=== PATIENT | male | born 1930 | race Caucasian/White ===

== ENCOUNTER 2017-07-09 10:52 | Inpatient (IN) | payer OTHER, MEDICARE, BC ==
[2017-07-09] VITALS (15 sets, daily range): BP systolic 108–139; BP diastolic 51–71
[~2017-07-09] VITALS: Ht 168.9 cm; Wt 67.5 kg
[2017-07-09] MEDS ORDERED: normal saline 1000ML IV soln IVB ONE (11:50)
[2017-07-09] MEDS ORDERED: LOSA25TA96 PO (11:59)
[2017-07-09] MEDS ORDERED: ALPR-624 PO (11:59)
[2017-07-09] MEDS ORDERED: HCTZ25T (11:59)
[2017-07-09] MEDS ORDERED: SIMV20TA5 PO (11:59)
[2017-07-09 12:08] LABS: BASOPHILS % (AUTO) 0.3 % (0-1); EOSINOPHILS # (AUTO) 0.2 X10'3 (0-0.9); EOSINOPHILS % (AUTO) 1.9 % (0-6); HEMATOCRIT 22.2 % (42.0-52.0); HEMOGLOBIN 7.7 g/dl (14.0-17.9); LYMPHOCYTES # (AUTO) 1.2 X10'3 (1.1-4.8); LYMPHOCYTES % (AUTO) 11.8 % (21-51); MEAN CORPUSCULAR HEMOGLOBIN 31.8 PG (27.0-31.0); MEAN CORPUSCULAR HGB CONC 34.9 % (33.0-36.5); MEAN PLATELET VOLUME 7.4 FL (7.4-10.4); MONOCYTES # (AUTO) 0.5 X10'3 (0-0.9); MONOCYTES % (AUTO) 4.6 % (2-12); NEUTROPHILS # (AUTO) 8.4 X10'3 (1.8-7.7); NEUTROPHILS % (AUTO) 81.4 % (42-75); PLATELET COUNT 266 X10'3 (140-440); RED BLOOD COUNT 2.44 X10'6 (4.70-6.10); RED CELL DISTRIBUTION WIDTH 12.9 % (11.5-14.5); WHITE BLOOD COUNT 10.4 X10'3 (4.5-11.0)
[2017-07-09 12:18] LABS: INR 1.1 INR; PARTIAL THROMBOPLASTIN TIME 21 SECONDS (22-32); PROTHROMBIN TIME 11.2 SECONDS (9.0-12.0)
[2017-07-09 12:22] LABS: ALANINE AMINOTRANSFERASE 15 U/L (12-78); ALBUMIN 2.3 G/DL (3.4-5.0); ALKALINE PHOSPHATASE 33 IU/L (46-116); ANION GAP 7 (8-16); ASPARTATE AMINO TRANSFERASE 12 U/L (10-37); BILIRUBIN,TOTAL 0.3 MG/DL (0.1-1.0); BLOOD UREA NITROGEN 21 MG/DL (7-18); BUN/CREATININE RATIO 22.8 (5.4-32.0); CALCIUM 7.7 MG/DL (8.5-10.1); CHLORIDE 107 MMOL/L (99-107); CREATININE 0.92 MG/DL (0.60-1.10); GLUCOSE 168 MG/DL (70-104); POTASSIUM 4.3 MMOL/L (3.5-5.1); SODIUM 141 MMOL/L (135-145); TOTAL CARBON DIOXIDE 27.3 MMOL/L (24-32); TOTAL PROTEIN 4.6 G/DL (6.4-8.2); eGFR 78 ML/MIN
[2017-07-09] MEDS ORDERED: potassium Cl 20 mEq SR tablet PO PRN (14:50)
[2017-07-09] MEDS ORDERED: magnesium 2GM in 50ml NS 50 ML IV PRN (14:50)
[2017-07-09] MEDS ORDERED: potassium Cl 40MEQ/NS 500ml 500 ML IV PRN ×2 (14:50)
[2017-07-09] MEDS ORDERED: magnesium Cl slow-release 64mg tablet PO PRN (14:50)
[2017-07-09] MEDS ORDERED: mag hydrox/Alum hydrox/simeth 30ml oral suspension PO PRN (14:50)
[2017-07-09] MEDS ORDERED: acetaminophen 325mg tablet PO PRN (14:50)
[2017-07-09] MEDS ORDERED: ondansetron/PF 4mg/2ml inj IV PRN (14:50)
[2017-07-09] MEDS ORDERED: magnesium 4gm in 100ml NS 100 ML IV PRN (14:50)
[2017-07-09] MEDS ORDERED: morphine 2 MG/ML inj. syringe IV PRN ×2 (14:50)
[2017-07-09] MEDS ORDERED: magnesium hydroxide 30ml (MOM) UD suspension PO PRN (14:50)
[2017-07-09] MEDS ORDERED: heparin sodium, porcine/PF 100unit/ml 5ML syringe ONE (15:00)
[2017-07-09] MEDS ORDERED: LIDOcaine 1%/PF (10mg/ml) 5ml vial SQ ONE (17:00)
[2017-07-09] MEDS ORDERED: midazolam 2 mg/2 ml injection IV PRN (17:00)
[2017-07-09] MEDS ORDERED: fentaNYL/PF 50MCG/1 ML 2ML syringe IV PRN (17:00)
[2017-07-09] MEDS ORDERED: LIDOcaine 1%/PF (10mg/ml) 5ml vial ONE (17:00)
[2017-07-09] MEDS ORDERED: heparin 1,000 UNITS/NS 500ml 500 ML ONE (17:01)
[2017-07-09] MEDS ORDERED: fentaNYL/PF 50MCG/1 ML 2ML syringe ONE ×2 (17:01→18:08)
[2017-07-09] MEDS ORDERED: midazolam 2 mg/2 ml injection ONE ×2 (17:01→18:08)
[2017-07-09] MEDS ORDERED: iohexol 300mg/ml 100ml inj. ONE (17:02)
[2017-07-09] MEDS ORDERED: iohexol 300 MG/1 ML 50ml polymer ONE (17:45)
[2017-07-09] MEDS ORDERED: glucagon, human recombinant 1mg kit ONE (17:45)
[2017-07-09] MEDS ORDERED: glucagon, human recombinant 1mg kit IM ONE (17:45)
[2017-07-09] MEDS ORDERED: PEG 3350/Na sulf,bicarb,Cl/KCl oral sol 4 liter bottle PO ONE (19:05)
[2017-07-09 20:08] LABS: BASOPHILS % (AUTO) 0.1 % (0-1); EOSINOPHILS # (AUTO) 0.3 X10'3 (0-0.9); EOSINOPHILS % (AUTO) 1.9 % (0-6); HEMATOCRIT 26.4 % (42.0-52.0); HEMOGLOBIN 9.2 g/dl (14.0-17.9); LYMPHOCYTES # (AUTO) 1.2 X10'3 (1.1-4.8); LYMPHOCYTES % (AUTO) 6.8 % (21-51); MEAN CORPUSCULAR HEMOGLOBIN 31.5 PG (27.0-31.0); MEAN CORPUSCULAR HGB CONC 34.7 % (33.0-36.5); MEAN CORPUSCULAR VOLUME 90.5 FL (78-98); MONOCYTES # (AUTO) 0.7 X10'3 (0-0.9); MONOCYTES % (AUTO) 3.9 % (2-12); NEUTROPHILS # (AUTO) 15.8 X10'3 (1.8-7.7); NEUTROPHILS % (AUTO) 87.3 % (42-75); PLATELET COUNT 218 X10'3 (140-440); RED BLOOD COUNT 2.91 X10'6 (4.70-6.10); RED CELL DISTRIBUTION WIDTH 13.8 % (11.5-14.5); WHITE BLOOD COUNT 18.1 X10'3 (4.5-11.0)
[2017-07-09 20:15] LABS: INR 1.1 INR; PROTHROMBIN TIME 11.2 SECONDS (9.0-12.0)
[2017-07-09] MEDS: pantoprazole 40MG/NS 100ML BAG 100 ML IV SCH (20:49)
[2017-07-09] MEDS: LORazepam 2 mg/ml vial IV PRN (20:49)
[2017-07-09] MEDS: dextrose 5%-1/2 normal saline 1,000 ML IV SCH (20:50)
[2017-07-10] VITALS (11 sets, daily range): BP systolic 117–144; BP diastolic 51–74
[2017-07-10] MEDS: pantoprazole 40MG/NS 100ML BAG 100 ML IV SCH ×4 (00:15→08:36)
[2017-07-10 00:43] LABS: BASOPHILS % (AUTO) 0.2 % (0-1); EOSINOPHILS # (AUTO) 0.2 X10'3 (0-0.9); EOSINOPHILS % (AUTO) 1.2 % (0-6); HEMATOCRIT 26.2 % (42.0-52.0); HEMOGLOBIN 8.9 g/dl (14.0-17.9); LYMPHOCYTES # (AUTO) 1.7 X10'3 (1.1-4.8); LYMPHOCYTES % (AUTO) 12.6 % (21-51); MEAN CORPUSCULAR HEMOGLOBIN 31.2 PG (27.0-31.0); MEAN CORPUSCULAR HGB CONC 34.2 % (33.0-36.5); MEAN CORPUSCULAR VOLUME 91.2 FL (78-98); MEAN PLATELET VOLUME 7.7 FL (7.4-10.4); MONOCYTES # (AUTO) 0.6 X10'3 (0-0.9); MONOCYTES % (AUTO) 4.1 % (2-12); NEUTROPHILS % (AUTO) 81.9 % (42-75); PLATELET COUNT 227 X10'3 (140-440); RED BLOOD COUNT 2.87 X10'6 (4.70-6.10); RED CELL DISTRIBUTION WIDTH 13.8 % (11.5-14.5); WHITE BLOOD COUNT 13.5 X10'3 (4.5-11.0)
[2017-07-10 00:54] LABS: PARTIAL THROMBOPLASTIN TIME 22 SECONDS (22-32); PROTHROMBIN TIME 10.7 SECONDS (9.0-12.0)
[2017-07-10 00:56] LABS: ALANINE AMINOTRANSFERASE 15 U/L (12-78); ALBUMIN 2.4 G/DL (3.4-5.0); ALKALINE PHOSPHATASE 33 IU/L (46-116); ANION GAP 7 (8-16); ASPARTATE AMINO TRANSFERASE 14 U/L (10-37); BILIRUBIN,TOTAL 0.7 MG/DL (0.1-1.0); BLOOD UREA NITROGEN 18 MG/DL (7-18); BUN/CREATININE RATIO 22.8 (5.4-32.0); CALCIUM 7.7 MG/DL (8.5-10.1); CHLORIDE 107 MMOL/L (99-107); CREATININE 0.79 MG/DL (0.60-1.10); GLUCOSE 141 MG/DL (70-104); MAGNESIUM 1.7 MG/DL (1.5-2.4); POTASSIUM 4.1 MMOL/L (3.5-5.1); SODIUM 140 MMOL/L (135-145); TOTAL CARBON DIOXIDE 25.7 MMOL/L (24-32); TOTAL PROTEIN 4.7 G/DL (6.4-8.2); eGFR > 90 ML/MIN
[2017-07-10] MEDS: dextrose 5%-1/2 normal saline 1,000 ML IV SCH ×2 (04:15→05:27)
[2017-07-10 04:54] LABS: CLARITY,URINE CLEAR (Clear); COLOR,URINE YELLOW (Yellow); GLUCOSE, URINE NEGATIVE (Neg); KETONES,URINE 15 mg/dl (Neg); LEUKOCYTE ESTERASE ,URINE NEGATIVE (Neg); NITRITES, URINE NEGATIVE (Neg); OCCULT BLOOD,URINE NEGATIVE (Neg); PROTEIN,URINE NEGATIVE (Neg); UROBILINOGEN,URINE 0.2 E.U/dL (0.2-1.0)
[2017-07-10 05:03] LABS: UA COLLECTION TYPE VOIDED
[2017-07-10] MEDS: LORazepam 2 mg/ml vial IV PRN ×2 (05:16→12:00)
[2017-07-10] MEDS: K and/or MAG REPLACEMENT MC SCH (08:00)
[2017-07-10] MEDS ORDERED: midazolam 2 mg/2 ml injection ONE (09:01)
[2017-07-10] MEDS ORDERED: fentaNYL/PF 50MCG/1 ML 2ML syringe ONE (09:01)
[2017-07-10] MEDS ORDERED: normal saline 1000ml 1,000 ML IV SCH (10:03)
[2017-07-10] MEDS ORDERED: MIDAZolam 5mg/5ml vial IV PRN (10:05)
[2017-07-10] MEDS ORDERED: fentaNYL/PF 50MCG/1 ML 2ML syringe IV PRN (10:05)
[2017-07-10] MEDS ORDERED: simethicone 40mg/0.6ml oral drops 30ml MC ONE (10:05)
[2017-07-10] MEDS ORDERED: LORazepam 0.5 MG tablet PO PRN (11:05)
[2017-07-10] MEDS ORDERED: thiamine inj. 100 MG in normal saline 100ml IV soln 100 ML IV ONE (14:25)
[2017-07-10] MEDS ORDERED: iohexol 350MG/ML 100ml bottle IV ONE (14:48)
[2017-07-10] MEDS: folic acid inj. 2 MG, thiamine inj. 100 MG, MVI, adult No.4 with vit. K 10 ML in dextro... IV SCH ×4 (17:00)
[2017-07-10] MEDS ORDERED: LORazepam 0.5 MG tablet PO SCH (21:00)
[2017-07-10] MEDS: pantoprazole 40 MG vial IV SCH (21:30)
[2017-07-11] MEDS: LORazepam 2 mg/ml vial IV PRN ×3 (01:30→10:10)
[2017-07-11] MEDS: dextrose 5%-1/2 normal saline 1,000 ML IV SCH ×2 (01:30→06:48)
[2017-07-11 03:00] VITALS: BP 128/53
[2017-07-11 05:56] LABS: BASOPHILS % (AUTO) 0.2 % (0-1); EOSINOPHILS # (AUTO) 0.5 X10'3 (0-0.9); EOSINOPHILS % (AUTO) 3.7 % (0-6); HEMATOCRIT 23.2 % (42.0-52.0); HEMOGLOBIN 8.2 g/dl (14.0-17.9); LYMPHOCYTES # (AUTO) 1.8 X10'3 (1.1-4.8); LYMPHOCYTES % (AUTO) 14.3 % (21-51); MEAN CORPUSCULAR HEMOGLOBIN 31.8 PG (27.0-31.0); MEAN CORPUSCULAR HGB CONC 35.2 % (33.0-36.5); MEAN CORPUSCULAR VOLUME 90.2 FL (78-98); MEAN PLATELET VOLUME 8.1 FL (7.4-10.4); MONOCYTES # (AUTO) 0.8 X10'3 (0-0.9); MONOCYTES % (AUTO) 6.3 % (2-12); NEUTROPHILS # (AUTO) 9.7 X10'3 (1.8-7.7); NEUTROPHILS % (AUTO) 75.5 % (42-75); PLATELET COUNT 224 X10'3 (140-440); RED BLOOD COUNT 2.57 X10'6 (4.70-6.10); RED CELL DISTRIBUTION WIDTH 13.8 % (11.5-14.5); WHITE BLOOD COUNT 12.8 X10'3 (4.5-11.0)
[2017-07-11 05:57] LABS: PARTIAL THROMBOPLASTIN TIME 22 SECONDS (22-32); PROTHROMBIN TIME 10.2 SECONDS (9.0-12.0)
[2017-07-11 06:00] VITALS: BP 139/59
[2017-07-11 06:12] LABS: ALANINE AMINOTRANSFERASE 21 U/L (12-78); ALBUMIN 2.7 G/DL (3.4-5.0); ALBUMIN/GLOBULIN RATIO 1.1 (1.1-1.5); ALKALINE PHOSPHATASE 37 IU/L (46-116); AMYLASE 50 U/L (25-115); ANION GAP 7 (8-16); ASPARTATE AMINO TRANSFERASE 17 U/L (10-37); BILIRUBIN,TOTAL 0.5 MG/DL (0.1-1.0); BLOOD UREA NITROGEN 7 MG/DL (7-18); CALCIUM 7.8 MG/DL (8.5-10.1); CHLORIDE 103 MMOL/L (99-107); CREATININE 0.78 MG/DL (0.60-1.10); GLUCOSE 113 MG/DL (70-104); LIPASE 102 U/L (73-393); MAGNESIUM 1.7 MG/DL (1.5-2.4); PHOSPHORUS 2.3 MG/DL (2.3-4.5); POTASSIUM 3.2 MMOL/L (3.5-5.1); SODIUM 137 MMOL/L (135-145); TOTAL CARBON DIOXIDE 27.3 MMOL/L (24-32); TOTAL PROTEIN 5.1 G/DL (6.4-8.2); eGFR > 90 ML/MIN
[2017-07-11] MEDS: pantoprazole 40 MG vial IV SCH (08:09)
[2017-07-11] MEDS: potassium Cl 20 mEq SR tablet PO PRN ×2 (08:09→14:05)
[2017-07-11] MEDS: folic acid inj. 2 MG, thiamine inj. 100 MG, MVI, adult No.4 with vit. K 10 ML in dextro... IV SCH ×4 (08:10)
[2017-07-11] MEDS: K and/or MAG REPLACEMENT MC SCH (08:11)
[2017-07-11 11:00] VITALS: BP 142/63
[2017-07-11] MEDS ORDERED: HCTZ25T PO (11:04)
[2017-07-11] MEDS ORDERED: FOLI1TAB16 PO (11:04)
[2017-07-11] MEDS ORDERED: FERR324T4 PO (11:04)
[2017-07-11] MEDS ORDERED: PANT40TA4 PO (11:04)
[2017-07-11] MEDS ORDERED: THI100T PO (11:04)
== END 2017-07-11 15:56 | disposition home or self-care (01) | DRG 377 ==
LOC: ER 10:53 → ED HOLD 14:48 → EDBEDREQTM 16:22 → EDBEDREQ 16:22 → PCU 3S 18:10
PROVIDERS: ADMIT Legal Medicine; ATTEND Internal Medicine
PROC: 30233N1 Transfusion of Nonautologous Red Blood Cells into Peripheral Vein, Percutaneous Approach (ICD-10-PCS; 2017-07-09)
PROC: CD171ZZ Planar Nuclear Medicine Imaging of Gastrointestinal Tract using Technetium 99m (Tc-99m) (ICD-10-PCS; 2017-07-09)
PROC: B41F1ZZ Fluoroscopy of Right Lower Extremity Arteries using Low Osmolar Contrast (ICD-10-PCS; 2017-07-09)
PROC: B4101ZZ Fluoroscopy of Abdominal Aorta using Low Osmolar Contrast (ICD-10-PCS; 2017-07-09)
PROC: B4141ZZ Fluoroscopy of Superior Mesenteric Artery using Low Osmolar Contrast (ICD-10-PCS; 2017-07-09)
PROC: B4151ZZ Fluoroscopy of Inferior Mesenteric Artery using Low Osmolar Contrast (ICD-10-PCS; 2017-07-09)
PROC: 0DBE8ZX Excision of Large Intestine, Via Natural or Artificial Opening Endoscopic, Diagnostic (ICD-10-PCS; principal; 2017-07-10)
PROC: 0W3P8ZZ Control Bleeding in Gastrointestinal Tract, Via Natural or Artificial Opening Endoscopic (ICD-10-PCS; 2017-07-10)
PROC: B3281ZZ Computerized Tomography (CT Scan) of Bilateral Internal Carotid Arteries using Low Osmolar Contrast (ICD-10-PCS; 2017-07-10)
PROC: B32G1ZZ Computerized Tomography (CT Scan) of Bilateral Vertebral Arteries using Low Osmolar Contrast (ICD-10-PCS; 2017-07-10)
DX: K55.21 Angiodysplasia of colon with hemorrhage (principal); E43 Unspecified severe protein-calorie malnutrition; D64.9 Anemia, unspecified; D12.6 Benign neoplasm of colon, unspecified; F41.0 Panic disorder [episodic paroxysmal anxiety]; E78.5 Hyperlipidemia, unspecified; I10 Essential (primary) hypertension; F41.9 Anxiety disorder, unspecified; K57.30 Diverticulosis of large intestine without perforation or abscess without bleeding; R29.810 Facial weakness; R40.2410 Glasgow coma scale score 13-15, unspecified time; I95.1 Orthostatic hypotension; Z93.3 Colostomy status; Z90.49 Acquired absence of other specified parts of digestive tract; Z88.6 Allergy status to analgesic agent; Z85.048 Personal history of other malignant neoplasm of rectum, rectosigmoid junction, and anus; Z87.891 Personal history of nicotine dependence; Z85.038 Personal history of other malignant neoplasm of large intestine; Z72.89 Other problems related to lifestyle
CPT/HCPCS: 36245; 44394; 44404; 93306; 99285; G0269; 36415; 70450; 70496; 71045; 75726; 76937; 78278; 80053; 81003; 82150; 83690; 83735; 84100; 84484; 85025; 85384; 85610; 85730; 86885; 86900; 86901; 86920; 87070; 93005; 93880; 97110; 97116; 97161; 99152; 99153; A4315; A4353; A4620; A6219; A9560; C1760; C1769; C1894; C9113; G0500; J1610; J1642; J1644; J2001; J2060; J2250; J3010; J3411; J3490; J7030; J7060; P9016; Q9967

== ENCOUNTER 2017-07-12 09:05 | Inpatient (IN) | payer OTHER, MEDICARE, BC ==
[~2017-07-12] VITALS: Ht 170.2 cm; Wt 71.8 kg
[~2017-07-12 09:05] MED LIST: ALPR-624 PO; FERR324T4 PO; FOLI1TAB16 PO; HCTZ25T PO; LOSA25TA96 PO; PANT40TA4 PO; SIMV20TA5 PO; THI100T PO
[2017-07-12] MEDS ORDERED: normal saline 1000ML IV soln IVB ONE (09:20)
[2017-07-12 10:03] LABS: BASOPHILS # (AUTO) 0.1 X10'3 (0-0.2); BASOPHILS % (AUTO) 0.8 % (0-1); EOSINOPHILS # (AUTO) 0.1 X10'3 (0-0.9); EOSINOPHILS % (AUTO) 0.3 % (0-6); HEMATOCRIT 22.8 % (42.0-52.0); LYMPHOCYTES # (AUTO) 0.7 X10'3 (1.1-4.8); LYMPHOCYTES % (AUTO) 3.8 % (21-51); MEAN CORPUSCULAR HGB CONC 35.1 % (33.0-36.5); MEAN PLATELET VOLUME 8.6 FL (7.4-10.4); MONOCYTES # (AUTO) 0.6 X10'3 (0-0.9); MONOCYTES % (AUTO) 3.4 % (2-12); NEUTROPHILS # (AUTO) 16.5 X10'3 (1.8-7.7); NEUTROPHILS % (AUTO) 91.7 % (42-75); PLATELET COUNT 238 X10'3 (140-440); RED CELL DISTRIBUTION WIDTH 13.2 % (11.5-14.5)
[2017-07-12 10:10] LABS: ALANINE AMINOTRANSFERASE 20 U/L (12-78); ALBUMIN 2.6 G/DL (3.4-5.0); ALKALINE PHOSPHATASE 40 IU/L (46-116); ANION GAP 5 (8-16); ASPARTATE AMINO TRANSFERASE 19 U/L (10-37); BILIRUBIN,TOTAL 0.5 MG/DL (0.1-1.0); BLOOD UREA NITROGEN 6 MG/DL (7-18); BUN/CREATININE RATIO 6.4 (5.4-32.0); CALCIUM 7.9 MG/DL (8.5-10.1); CHLORIDE 105 MMOL/L (99-107); CREATININE 0.94 MG/DL (0.60-1.10); GLUCOSE 106 MG/DL (70-104); LIPASE 59 U/L (73-393); MAGNESIUM 1.8 MG/DL (1.5-2.4); POTASSIUM 4.2 MMOL/L (3.5-5.1); SODIUM 140 MMOL/L (135-145); TOTAL CARBON DIOXIDE 30.4 MMOL/L (24-32); TOTAL PROTEIN 5.2 G/DL (6.4-8.2); eGFR 76 ML/MIN
[2017-07-12 10:14] LABS: ETHANOL < 0.010 GM/DL (0.0-0.010); PARTIAL THROMBOPLASTIN TIME 24 SECONDS (22-32); PROTHROMBIN TIME 10.7 SECONDS (9.0-12.0)
[2017-07-12] MEDS: normal saline 1000ml 1,000 ML IV SCH (11:26)
[2017-07-12] MEDS ORDERED: mag hydrox/Alum hydrox/simeth 30ml oral suspension PO PRN (11:30)
[2017-07-12] MEDS ORDERED: ALPRAZolam 0.5mg tablet PO PRN (11:30)
[2017-07-12] MEDS ORDERED: potassium Cl 40MEQ/NS 500ml 500 ML IV PRN ×2 (11:30)
[2017-07-12] MEDS ORDERED: magnesium 4gm in 100ml NS 100 ML IV PRN (11:30)
[2017-07-12] MEDS ORDERED: magnesium Cl slow-release 64mg tablet PO PRN (11:30)
[2017-07-12] MEDS ORDERED: potassium Cl 20 mEq SR tablet PO PRN ×2 (11:30)
[2017-07-12] MEDS ORDERED: magnesium hydroxide 30ml (MOM) UD suspension PO PRN (11:30)
[2017-07-12] MEDS ORDERED: magnesium 2GM in 50ml NS 50 ML IV PRN (11:30)
[2017-07-12 14:00] VITALS: BP 137/50
[2017-07-12 15:58] VITALS: BP 137/50
[2017-07-12 16:15] VITALS: BP 133/62
[2017-07-12 16:30] VITALS: BP 148/113
[2017-07-12 16:45] VITALS: BP 140/62
[2017-07-12 18:10] LABS: CLARITY,URINE Turbid (Clear); COLOR,URINE Yellow (Yellow); GLUCOSE, URINE Negative (Neg); KETONES,URINE Trace mg/dl (Neg); LEUKOCYTE ESTERASE ,URINE Large (Neg); NITRITES, URINE Positive (Neg); OCCULT BLOOD,URINE Large (Neg); PH,URINE 8.5 (4.8-8.0); PROTEIN,URINE 100 mg/dl (Neg)
[2017-07-12 18:11] LABS: UA COLLECTION TYPE URINAL
[2017-07-12] MEDS: acetaminophen 325mg tablet PO PRN (18:16)
[2017-07-12 18:25] LABS: BACTERIA,URINE 3+ /HPF (Neg); SQUAMOUS EPITHELIAL CELL,UR FEW /LPF (FEW)
[2017-07-12 18:26] LABS: WBC,URINE 50-100 /HPF (0-4)
[2017-07-12 20:00] VITALS: BP 115/48
[2017-07-12] MEDS ORDERED: pantoprazole 40 MG vial IV ONE (20:00)
[2017-07-12] MEDS ORDERED: CefTRIAXone 2gm/NS 100ml IVPB 100 ML IV ONE (20:35)
[2017-07-12] MEDS: ferrous sulfate 325mg tablet PO SCH (20:53)
[2017-07-13] VITALS (12 sets, daily range): BP systolic 88–123; BP diastolic 41–61
[2017-07-13] MEDS: normal saline 1000ml 1,000 ML IV SCH ×3 (01:22→21:38)
[2017-07-13] MEDS: ALPRAZolam 0.5mg tablet PO PRN (02:55)
[2017-07-13] MEDS: acetaminophen 325mg tablet PO PRN ×2 (02:55→16:07)
[2017-07-13] MEDS: K and/or MAG REPLACEMENT MC SCH (08:00)
[2017-07-13] MEDS: folic acid 1mg tablet PO SCH (09:42)
[2017-07-13] MEDS: ferrous sulfate 325mg tablet PO SCH ×2 (09:42→21:35)
[2017-07-13] MEDS: thiamine 100mg tablet PO SCH (09:42)
[2017-07-13] MEDS: atorvastatin 10mg tablet PO SCH (09:42)
[2017-07-13 11:13] LABS: BASOPHILS % (AUTO) 0.1 % (0-1); EOSINOPHILS # (AUTO) 0.5 X10'3 (0-0.9); EOSINOPHILS % (AUTO) 1.9 % (0-6); HEMATOCRIT 27.4 % (42.0-52.0); HEMOGLOBIN 9.6 g/dl (14.0-17.9); LYMPHOCYTES # (AUTO) 0.9 X10'3 (1.1-4.8); LYMPHOCYTES % (AUTO) 3.8 % (21-51); MEAN CORPUSCULAR HEMOGLOBIN 31.7 PG (27.0-31.0); MEAN CORPUSCULAR VOLUME 90.6 FL (78-98); MEAN PLATELET VOLUME 7.7 FL (7.4-10.4); MONOCYTES % (AUTO) 4.2 % (2-12); NEUTROPHILS # (AUTO) 21.5 X10'3 (1.8-7.7); PLATELET COUNT 229 X10'3 (140-440); RED BLOOD COUNT 3.02 X10'6 (4.70-6.10); RED CELL DISTRIBUTION WIDTH 14.6 % (11.5-14.5); WHITE BLOOD COUNT 23.9 X10'3 (4.5-11.0)
[2017-07-13 11:25] LABS: ALBUMIN 2.3 G/DL (3.4-5.0); ANION GAP 7 (8-16); BLOOD UREA NITROGEN 11 MG/DL (7-18); BUN/CREATININE RATIO 10.2 (5.4-32.0); CALCIUM 7.8 MG/DL (8.5-10.1); CHLORIDE 103 MMOL/L (99-107); CREATININE 1.08 MG/DL (0.60-1.10); GLUCOSE 127 MG/DL (70-104); MAGNESIUM 1.8 MG/DL (1.5-2.4); POTASSIUM 3.9 MMOL/L (3.5-5.1); SODIUM 138 MMOL/L (135-145); eGFR 65 ML/MIN
[2017-07-13] MEDS: cefTRIAXone 1g/NS 100ml IVPB 100 ML IV SCH (12:28)
[2017-07-14] VITALS (7 sets, daily range): BP systolic 112–157; BP diastolic 46–66
[2017-07-14] MEDS: normal saline 1000ml 1,000 ML IV SCH ×3 (03:26→22:31)
[2017-07-14] MEDS: ondansetron/PF 4mg/2ml inj IV PRN ×2 (03:59→13:46)
[2017-07-14] MEDS: K and/or MAG REPLACEMENT MC SCH (08:00)
[2017-07-14] MEDS: ferrous sulfate 325mg tablet PO SCH ×2 (08:08→20:16)
[2017-07-14] MEDS: folic acid 1mg tablet PO SCH (08:08)
[2017-07-14] MEDS: cefTRIAXone 1g/NS 100ml IVPB 100 ML IV SCH (08:08)
[2017-07-14] MEDS: atorvastatin 10mg tablet PO SCH (08:08)
[2017-07-14] MEDS: thiamine 100mg tablet PO SCH (08:08)
[2017-07-14 08:15] LABS: BASOPHILS % (AUTO) 0 % (0-1); EOSINOPHILS # (AUTO) 0.5 X10'3 (0-0.9); HEMATOCRIT 27.5 % (42.0-52.0); HEMOGLOBIN 9.4 g/dl (14.0-17.9); LYMPHOCYTES # (AUTO) 0.8 X10'3 (1.1-4.8); LYMPHOCYTES % (AUTO) 4.9 % (21-51); MEAN PLATELET VOLUME 7.3 FL (7.4-10.4); MONOCYTES # (AUTO) 1.1 X10'3 (0-0.9); MONOCYTES % (AUTO) 6.3 % (2-12); NEUTROPHILS # (AUTO) 14.5 X10'3 (1.8-7.7); NEUTROPHILS % (AUTO) 85.8 % (42-75); PLATELET COUNT 238 X10'3 (140-440); RED BLOOD COUNT 3.02 X10'6 (4.70-6.10); RED CELL DISTRIBUTION WIDTH 15.5 % (11.5-14.5); WHITE BLOOD COUNT 16.9 X10'3 (4.5-11.0)
[2017-07-14 08:25] LABS: ALBUMIN 1.9 G/DL (3.4-5.0); ANION GAP 6 (8-16); BLOOD UREA NITROGEN 13 MG/DL (7-18); BUN/CREATININE RATIO 14.3 (5.4-32.0); CALCIUM 7.8 MG/DL (8.5-10.1); CHLORIDE 107 MMOL/L (99-107); CREATININE 0.91 MG/DL (0.60-1.10); GLUCOSE 96 MG/DL (70-104); MAGNESIUM 1.6 MG/DL (1.5-2.4); PHOSPHORUS 3.2 MG/DL (2.3-4.5); SODIUM 141 MMOL/L (135-145); TOTAL CARBON DIOXIDE 28.3 MMOL/L (24-32); eGFR 79 ML/MIN
[2017-07-14] MEDS: lactobacillus rhamnosus 10,000 MMU CELLS/CAPSULE PO SCH (17:20)
[2017-07-14] MEDS: ALPRAZolam 0.5mg tablet PO PRN (20:16)
[2017-07-15] VITALS: BP 145/69
[2017-07-15 05:20] LABS: BASOPHILS % (AUTO) 0.1 % (0-1); EOSINOPHILS # (AUTO) 0.2 X10'3 (0-0.9); EOSINOPHILS % (AUTO) 1.6 % (0-6); HEMATOCRIT 28.4 % (42.0-52.0); HEMOGLOBIN 9.6 g/dl (14.0-17.9); LYMPHOCYTES # (AUTO) 0.8 X10'3 (1.1-4.8); MEAN CORPUSCULAR HEMOGLOBIN 30.6 PG (27.0-31.0); MEAN CORPUSCULAR HGB CONC 33.8 % (33.0-36.5); MEAN CORPUSCULAR VOLUME 90.6 FL (78-98); MEAN PLATELET VOLUME 7.6 FL (7.4-10.4); MONOCYTES # (AUTO) 0.8 X10'3 (0-0.9); MONOCYTES % (AUTO) 6.9 % (2-12); NEUTROPHILS # (AUTO) 10.2 X10'3 (1.8-7.7); NEUTROPHILS % (AUTO) 84.4 % (42-75); PLATELET COUNT 290 X10'3 (140-440); RED BLOOD COUNT 3.14 X10'6 (4.70-6.10); RED CELL DISTRIBUTION WIDTH 15.3 % (11.5-14.5); WHITE BLOOD COUNT 12.1 X10'3 (4.5-11.0)
[2017-07-15 06:26] LABS: ALBUMIN 1.8 G/DL (3.4-5.0); ANION GAP 8 (8-16); BLOOD UREA NITROGEN 13 MG/DL (7-18); BUN/CREATININE RATIO 14.3 (5.4-32.0); CALCIUM 8.1 MG/DL (8.5-10.1); CHLORIDE 108 MMOL/L (99-107); CREATININE 0.91 MG/DL (0.60-1.10); GLUCOSE 80 MG/DL (70-104); MAGNESIUM 1.7 MG/DL (1.5-2.4); PHOSPHORUS 3.1 MG/DL (2.3-4.5); POTASSIUM 3.8 MMOL/L (3.5-5.1); SODIUM 143 MMOL/L (135-145); TOTAL CARBON DIOXIDE 26.9 MMOL/L (24-32); eGFR 79 ML/MIN
[2017-07-15 08:00] VITALS: BP 142/55
[2017-07-15] MEDS: K and/or MAG REPLACEMENT MC SCH (08:00)
[2017-07-15] MEDS: ferrous sulfate 325mg tablet PO SCH (08:12)
[2017-07-15] MEDS: lactobacillus rhamnosus 10,000 MMU CELLS/CAPSULE PO SCH (08:12)
[2017-07-15] MEDS: atorvastatin 10mg tablet PO SCH (08:12)
[2017-07-15] MEDS: folic acid 1mg tablet PO SCH (08:12)
[2017-07-15] MEDS: thiamine 100mg tablet PO SCH (08:12)
[2017-07-15] MEDS: normal saline 1000ml 1,000 ML IV SCH (08:13)
[2017-07-15] MEDS: cefTRIAXone 1g/NS 100ml IVPB 100 ML IV SCH (08:13)
[2017-07-15 11:14] VITALS: BP_SYST 145; BP_SYST 152; BP_SYST 153; BP_DIAS 70; BP_DIAS 78
[2017-07-15 12:00] VITALS: BP 152/78
[2017-07-15] MEDS ORDERED: LACT1CAP26 PO (12:22)
[2017-07-15] MEDS ORDERED: LEVO500T2 PO (12:22)
[2017-07-16] MEDS ORDERED: levoFLOXACIN 500mg tablet PO SCH (11:00)
== END 2017-07-15 14:40 | disposition home health service (06) | DRG 377 ==
LOC: ER 09:05 → ED HOLD 11:26 → SUR 3N 13:47
PROVIDERS: ADMIT Internal Medicine Nephrology; ATTEND Internal Medicine Nephrology
PROC: 30233N1 Transfusion of Nonautologous Red Blood Cells into Peripheral Vein, Percutaneous Approach (ICD-10-PCS; principal; 2017-07-12)
DX: K92.2 Gastrointestinal hemorrhage, unspecified (principal); G93.41 Metabolic encephalopathy; E44.0 Moderate protein-calorie malnutrition; E87.3 Alkalosis; I95.9 Hypotension, unspecified; E86.9 Volume depletion, unspecified; N39.0 Urinary tract infection, site not specified; D62 Acute posthemorrhagic anemia; F41.0 Panic disorder [episodic paroxysmal anxiety]; I10 Essential (primary) hypertension; B96.20 Unspecified Escherichia coli [E. coli] as the cause of diseases classified elsewhere; Z90.49 Acquired absence of other specified parts of digestive tract; Z93.3 Colostomy status; Z88.6 Allergy status to analgesic agent; Z79.899 Other long term (current) drug therapy; Z85.038 Personal history of other malignant neoplasm of large intestine; Z80.1 Family history of malignant neoplasm of trachea, bronchus and lung; Z80.8 Family history of malignant neoplasm of other organs or systems; Z82.0 Family history of epilepsy and other diseases of the nervous system; Z68.24 Body mass index [BMI] 24.0-24.9, adult
CPT/HCPCS: 36415; 70551; 71045; 80048; 80053; 80320; 81001; 83605; 83690; 83735; 84100; 84484; 85025; 85610; 85730; 86880; 86885; 86900; 86901; 86920; 86922; 87040; 87070; 87077; 87088; 87186; 93005; 96360; 96361; 97116; 99291; A4421; C9113; J0696; J2405; J7030; P9016